=== PATIENT | male | born 1945 | race Caucasian/White ===

== ENCOUNTER → 2018-08-17 09:18 | Outpatient (CLI) | payer MEDICARE, OTHER, SELFPAY ==
[2018-08-17 10:25] LABS: Alanine Aminotransferase 48 IU/L (21-72); Albumin 4.4 g/dL (3.5-5.0); Albumin Globulin Ratio 1.6 (1.0-2.8); Alkaline Phosphatase 56 U/L (38-126); Aspartate Aminotransferase 41 IU/L (17-59); BUN Creatinine Ratio 21.3 (6-22); Bilirubin Total 0.7 mg/dL (0.2-1.3); Blood Urea Nitrogen 17 mg/dL (9-20); Calcium 9.6 mg/dL (8.4-10.2); Carbon Dioxide 25 mmol/L (22-32); Chloride 103 mmol/L (98-107); Estimated Glomerular Filt Rate > 60.0 mL/min (>60); Globulin 2.7 g/dL (1.7-4.1); Glucose 103 mg/dL (80-110); HEMOLYSIS < 15 (0-50); Potassium 4.9 mmol/L (3.4-5.1); Sodium 139 mmol/L (137-145); Total Protein 7.1 g/dL (6.3-8.2)
== END ==
PROVIDERS: Family Provider Physician Assistant; PCP Physician Assistant; Visit Provider Physician Assistant
DX: I10 Essential (primary) hypertension (principal); R97.20 Elevated prostate specific antigen [PSA]
CPT/HCPCS: 36415; 80053; 84153

== ENCOUNTER → 2019-08-20 11:49 | Outpatient (CLI) | payer MEDICARE, OTHER, SELFPAY ==
[2019-08-20 13:10] LABS: Alanine Aminotransferase 98 IU/L (<50); Albumin 4.5 g/dL (3.5-5.0); Albumin Globulin Ratio 1.5 (1.0-2.8); Alkaline Phosphatase 69 U/L (38-126); Aspartate Aminotransferase 95 IU/L (17-59); Bilirubin Total 0.7 mg/dL (0.2-1.3); Blood Urea Nitrogen 16 mg/dL (9-20); Calcium 10.3 mg/dL (8.4-10.2); Carbon Dioxide 23 mmol/L (22-32); Chloride 103 mmol/L (98-107); Estimated Glomerular Filt Rate > 60.0 mL/min (>60); Globulin 3.1 g/dL (1.7-4.1); Glucose 152 mg/dL (80-110); HEMOLYSIS < 15 (0-50); Potassium 4.5 mmol/L (3.4-5.1); Sodium 138 mmol/L (137-145); Total Protein 7.6 g/dL (6.3-8.2)
[2019-08-20 13:14] LABS: Creatinine Urine Random 122.8 mg/dL
[2019-08-20 13:19] LABS: Microalbumi Creatinin Ratio Ur 115.6 ug/mg CR (<30); Microalbumin Urine Random 14.2 mg/dL (0-1.6)
== END ==
PROVIDERS: PCP Physician Assistant; Visit Provider Physician Assistant
DX: I10 Essential (primary) hypertension (principal)
CPT/HCPCS: 36415; 80053; 82043; 82570

== ENCOUNTER → 2019-10-13 10:12 | Outpatient (CLI) | payer MEDICARE, OTHER, SELFPAY ==
[2019-10-13 10:47] LABS: Hemoglobin A1C% w Est Avg Glu 7.5 % (4.0-6.0)
[2019-10-13 10:49] LABS: Alanine Aminotransferase 50 IU/L (<50); Albumin 4.6 g/dL (3.5-5.0); Albumin Globulin Ratio 1.4 (1.0-2.8); Alkaline Phosphatase 66 U/L (38-126); Aspartate Aminotransferase 39 IU/L (17-59); BUN Creatinine Ratio 16.3 (6-22); Bilirubin Total 0.6 mg/dL (0.2-1.3); Blood Urea Nitrogen 13 mg/dL (9-20); Calcium 10.1 mg/dL (8.4-10.2); Carbon Dioxide 26 mmol/L (22-32); Chloride 101 mmol/L (98-107); Cholesterol 182 mg/dL (140-199); Estimated Glomerular Filt Rate > 60.0 mL/min (>60); Globulin 3.3 g/dL (1.7-4.1); Glucose 141 mg/dL (80-110); HDL Cholesterol 30 mg/dL (40-60); HEMOLYSIS < 15 (0-50); LDL Cholesterol Calculated 111 mg/dL (<100); Potassium 5.2 mmol/L (3.4-5.1); Sodium 138 mmol/L (137-145); Total Protein 7.9 g/dL (6.3-8.2); Triglycerides 207 mg/dL (35-150)
[2019-10-13 11:19] LABS: Thyroid Stimulating Hormone 1.95 uIU/mL (0.47-4.68)
== END ==
PROVIDERS: PCP Physician Assistant; Referring Provider Physician Assistant; Visit Provider Physician Assistant
DX: I10 Essential (primary) hypertension (principal); R63.5 Abnormal weight gain; R73.01 Impaired fasting glucose; R74.8 Abnormal levels of other serum enzymes
CPT/HCPCS: 36415; 80053; 80061; 83036; 84443

== ENCOUNTER → 2020-11-05 10:16 | Outpatient (CLI) | payer MEDICARE, OTHER, SELFPAY ==
[2020-11-05 11:02] LABS: Add Manual Diff / Slide Review NO; Basophils Absolute Auto 0 /uL (0-100); Basophils Percent Auto 0.7 % (0-2); Eosinophils Absolute Auto 100 /uL (0-450); Eosinophils Percent Auto 2.4 % (2-4); Hematocrit 44.1 % (41-53); Hemoglobin 14.9 g/dL (13.5-17.5); Lymphocytes Absolute Auto 1100 /uL (1100-4500); Lymphocytes Percent Auto 20.7 % (25-40); Mean Corpuscular HGB Conc 33.7 % (30-36); Mean Corpuscular Hemoglobin 33.7 PG (26-34); Mean Corpuscular Volume 99.8 fL (80-100); Monocytes Absolute Auto 700 /uL (0-900); Monocytes Percent Auto 13.6 % (3-14); Neutrophils Absolute Auto 3400 /uL (1500-7000); Neutrophils Percent Auto 62.6 % (50-75); Platelet Count 201 X10^3/uL (150-400); Red Blood Cell Count 4.42 X10^6/uL (4.5-5.9); Red Cell Distribution Width 13.5 % (11.6-14.8); White Blood Cell Count 5.5 X10^3/uL (4.5-11.0)
[2020-11-05 11:12] LABS: Hemoglobin A1C% w Est Avg Glu 5.4 % (4.0-6.0)
[2020-11-05 11:47] LABS: Alanine Aminotransferase 21 IU/L (<50); Albumin 4.5 g/dL (3.5-5.0); Albumin Globulin Ratio 1.4 (1.0-2.8); Alkaline Phosphatase 63 U/L (38-126); Aspartate Aminotransferase 34 IU/L (17-59); BUN Creatinine Ratio 29.2 (6-22); Bilirubin Total 0.5 mg/dL (0.2-1.3); Blood Urea Nitrogen 21 mg/dL (9-20); Calcium 9.7 mg/dL (8.4-10.2); Carbon Dioxide 24 mmol/L (22-32); Chloride 106 mmol/L (98-107); Cholesterol 182 mg/dL (140-199); Estimated Glomerular Filt Rate > 60.0 mL/min (>60); Globulin 3.2 g/dL (1.7-4.1); Glucose 98 mg/dL (80-110); HDL Cholesterol 53 mg/dL (40-60); HEMOLYSIS < 15 (0-50); LDL Cholesterol Calculated 95 mg/dL (<100); Potassium 4.5 mmol/L (3.4-5.1); Sodium 139 mmol/L (137-145); Total Protein 7.7 g/dL (6.3-8.2); Triglycerides 172 mg/dL (35-150)
== END ==
PROVIDERS: PCP Registered Nurse Diabetes Educator; Referring Provider Registered Nurse Diabetes Educator; Visit Provider Registered Nurse Diabetes Educator
DX: E11.9 Type 2 diabetes mellitus without complications (principal); I10 Essential (primary) hypertension; E78.5 Hyperlipidemia, unspecified
CPT/HCPCS: 36415; 80053; 80061; 83036; 85025

== ENCOUNTER → 2021-12-22 09:03 | Outpatient (CLI) | payer MEDICARE, OTHER, SELFPAY ==
[2021-12-22 09:54] LABS: Hematocrit 43.4 % (41-53); Hemoglobin 14.9 g/dL (13.5-17.5); Mean Corpuscular HGB Conc 34.2 % (30-36); Mean Corpuscular Hemoglobin 34.1 PG (26-34); Mean Corpuscular Volume 99.4 fL (80-100); Platelet Count 227 X10^3/uL (150-400); Red Blood Cell Count 4.36 X10^6/uL (4.5-5.9); Red Cell Distribution Width 12.5 % (11.6-14.8); White Blood Cell Count 6.1 X10^3/uL (4.5-11.0)
[2021-12-22 10:09] LABS: Hemoglobin A1C% w Est Avg Glu 5.5 % (4.0-6.0)
[2021-12-22 10:13] LABS: Alanine Aminotransferase 19 IU/L (<50); Albumin 4.5 g/dL (3.5-5.0); Albumin Globulin Ratio 1.6 (1.0-2.8); Alkaline Phosphatase 63 U/L (38-126); Aspartate Aminotransferase 25 IU/L (17-59); BUN Creatinine Ratio 31.3 (6-22); Bilirubin Total 0.8 mg/dL (0.2-1.3); Blood Urea Nitrogen 21 mg/dL (9-20); Calcium 9.2 mg/dL (8.4-10.2); Carbon Dioxide 22 mmol/L (22-32); Chloride 106 mmol/L (98-107); Cholesterol 180 mg/dL (140-199); Estimated Glomerular Filt Rate > 60 mL/min (>60); Globulin 2.8 g/dL (1.7-4.1); Glucose 98 mg/dL (80-110); HDL Cholesterol 45 mg/dL (40-60); HEMOLYSIS < 15 (0-50); LDL Cholesterol Calculated 102 mg/dL (<100); Potassium 4.4 mmol/L (3.4-5.1); Sodium 138 mmol/L (137-145); Total Protein 7.3 g/dL (6.3-8.2); Triglycerides 163 mg/dL (35-150)
[2021-12-22 10:20] LABS: Creatinine Urine Random 91.4 mg/dL; Microalbumi Creatinin Ratio Ur 98.4 ug/mg CR (<30)
[2021-12-22 10:36] LABS: TSH w/ Reflex to FT4 1.83 uIU/mL (0.47-4.68)
== END ==
PROVIDERS: PCP Registered Nurse Diabetes Educator; Referring Provider Registered Nurse Diabetes Educator; Visit Provider Registered Nurse Diabetes Educator
DX: E78.5 Hyperlipidemia, unspecified (principal); E11.9 Type 2 diabetes mellitus without complications; I10 Essential (primary) hypertension
CPT/HCPCS: 36415; 80053; 80061; 82043; 82570; 83036; 84443; 85027

== ENCOUNTER → 2022-02-22 14:21 | Outpatient (CLI) | payer MEDICARE, OTHER, SELFPAY ==
[2022-02-22 15:36] LABS: Hemoglobin A1C% w Est Avg Glu 5.7 % (4.0-6.0)
[2022-02-22 16:00] LABS: Carbon Dioxide 23 mmol/L (22-32); Estimated Glomerular Filt Rate > 60 mL/min (>60); Glucose 104 mg/dL (80-110)
[2022-02-22 16:02] LABS: Creatinine Urine Random 83.4 mg/dL
[2022-02-22 16:05] LABS: Microalbumi Creatinin Ratio Ur 27.5 ug/mg CR (<30); Microalbumin Urine Random 2.3 mg/dL (0-1.6)
[2022-02-22 16:07] LABS: Chloride 106 mmol/L (98-107); Sodium 140 mmol/L (137-145)
[2022-02-22 16:23] LABS: HEMOLYSIS 116 (0-50)
== END ==
PROVIDERS: PCP Registered Nurse Diabetes Educator; Referring Provider Registered Nurse Diabetes Educator; Visit Provider Registered Nurse Diabetes Educator
DX: I10 Essential (primary) hypertension (principal); E11.9 Type 2 diabetes mellitus without complications; R80.9 Proteinuria, unspecified
CPT/HCPCS: 36415; 80048; 82043; 82570; 83036

== ENCOUNTER → 2022-04-18 10:21 | Outpatient (CLI) | payer MEDICARE, OTHER, SELFPAY ==
[2022-04-18 12:53] LABS: BUN Creatinine Ratio 36.9 (6-22); Blood Urea Nitrogen 31 mg/dL (9-20); Calcium 9.5 mg/dL (8.4-10.2); Carbon Dioxide 25 mmol/L (22-32); Chloride 103 mmol/L (98-107); Estimated Glomerular Filt Rate > 60 mL/min (>60); Glucose 96 mg/dL (80-110); HEMOLYSIS < 15 (0-50); Potassium 4.2 mmol/L (3.4-5.1); Sodium 141 mmol/L (137-145)
== END ==
PROVIDERS: PCP Registered Nurse Diabetes Educator; Referring Provider Registered Nurse Diabetes Educator; Visit Provider Registered Nurse Diabetes Educator
DX: E11.9 Type 2 diabetes mellitus without complications (principal); I10 Essential (primary) hypertension
CPT/HCPCS: 36415; 80048

== ENCOUNTER → 2022-06-26 14:13 | Outpatient (CLI) | payer MEDICARE, SELFPAY ==
[2022-06-27 18:01] LABS: Hemoglobin A1C% w Est Avg Glu 5.5 % (4.0-6.0)
== END ==
PROVIDERS: PCP Registered Nurse Diabetes Educator; Referring Provider Registered Nurse Diabetes Educator; Visit Provider Registered Nurse Diabetes Educator
DX: E11.9 Type 2 diabetes mellitus without complications (principal); I10 Essential (primary) hypertension
CPT/HCPCS: 36415; 83036

== ENCOUNTER → 2022-11-24 14:28 | Outpatient (CLI) | payer MEDICARE, OTHER, SELFPAY ==
[2022-11-24 18:55] LABS: Hematocrit 37.9 % (41-53); Mean Corpuscular HGB Conc 34.4 % (30-36); Mean Corpuscular Hemoglobin 34.6 PG (26-34); Mean Corpuscular Volume 100.7 fL (80-100); Platelet Count 219 X10^3/uL (150-400); Red Blood Cell Count 3.76 X10^6/uL (4.5-5.9); Red Cell Distribution Width 12.6 % (11.6-14.8); White Blood Cell Count 7.1 X10^3/uL (4.5-11.0)
[2022-11-24 19:28] LABS: Alanine Aminotransferase 21 IU/L (<50); Albumin 4.4 g/dL (3.5-5.0); Albumin Globulin Ratio 1.7 (1.0-2.8); Alkaline Phosphatase 69 U/L (38-126); Aspartate Aminotransferase 25 IU/L (17-59); Bilirubin Total 0.4 mg/dL (0.2-1.3); Blood Urea Nitrogen 30 mg/dL (9-20); Carbon Dioxide 23 mmol/L (22-32); Chloride 102 mmol/L (98-107); Cholesterol 138 mg/dL (140-199); Estimated Glomerular Filt Rate > 60 mL/min (>60); Globulin 2.6 g/dL (1.7-4.1); Glucose 105 mg/dL (80-110); HDL Cholesterol 55 mg/dL (40-60); HEMOLYSIS < 15 (0-50); LDL Cholesterol Calculated 41 mg/dL (<100); Potassium 4.2 mmol/L (3.4-5.1); Sodium 136 mmol/L (137-145); Triglycerides 212 mg/dL (35-150)
[2022-11-24 20:37] LABS: Creatinine Urine Random 81.8 mg/dL
[2022-11-24 20:40] LABS: Microalbumi Creatinin Ratio Ur 40.3 ug/mg CR (<30); Microalbumin Urine Random 3.3 mg/dL (0-1.6)
[2022-11-27 03:29] LABS: x Labcorp Estim. Avg Glu (eAG) 114 mg/dL (.); x Labcorp Hemoglobin A1c 5.6 % (4.8-5.6)
== END ==
PROVIDERS: PCP Registered Nurse Diabetes Educator; Referring Provider Registered Nurse Diabetes Educator; Visit Provider Registered Nurse Diabetes Educator
DX: I10 Essential (primary) hypertension (principal); E11.9 Type 2 diabetes mellitus without complications; E78.5 Hyperlipidemia, unspecified
CPT/HCPCS: 36415; 80053; 80061; 82043; 82570; 83036; 85027

== ENCOUNTER → 2022-12-13 12:58 | Outpatient (CLI) | payer MEDICARE, OTHER, SELFPAY ==
[2022-12-13 15:17] LABS: Folate > 20.0 ng/mL (2.76-20.0); Vitamin B12 Reflex MMA if <400 336 pg/mL (239-931)
[2022-12-14 06:04] LABS: x Labcorp Estim. Avg Glu (eAG) 117 mg/dL (.); x Labcorp Hemoglobin A1c 5.7 % (4.8-5.6)
[2022-12-22 14:40] LABS: Methylmalonic Acid,Serum 275 nmol/L (0-378)
== END ==
PROVIDERS: PCP Registered Nurse Diabetes Educator; Referring Provider Registered Nurse Diabetes Educator; Visit Provider Registered Nurse Diabetes Educator
DX: D53.9 Nutritional anemia, unspecified (principal); E11.9 Type 2 diabetes mellitus without complications
CPT/HCPCS: 82607; 82746; 83036; 83921; 85045

== ENCOUNTER → 2023-12-05 09:58 | Outpatient (CLI) | payer MEDICARE, OTHER, SELFPAY ==
[2023-12-05 10:50] LABS: Add Manual Diff / Slide Review NO; Basophils Absolute Auto 0 /uL (0-100); Basophils Percent Auto 0.8 % (0-2); Eosinophils Absolute Auto 100 /uL (0-450); Eosinophils Percent Auto 2.7 % (2-4); Hematocrit 39.3 % (41-53); Hemoglobin 13.3 g/dL (13.5-17.5); Lymphocytes Absolute Auto 1200 /uL (1100-4500); Lymphocytes Percent Auto 22.8 % (25-40); Mean Corpuscular HGB Conc 33.7 % (30-36); Mean Corpuscular Hemoglobin 33.7 PG (26-34); Monocytes Absolute Auto 600 /uL (0-900); Monocytes Percent Auto 11.2 % (3-14); Neutrophils Absolute Auto 3200 /uL (1500-7000); Neutrophils Percent Auto 62.5 % (50-75); Platelet Count 204 X10^3/uL (150-400); Red Blood Cell Count 3.93 X10^6/uL (4.5-5.9); Red Cell Distribution Width 13.4 % (11.6-14.8); White Blood Cell Count 5.2 X10^3/uL (4.5-11.0)
[2023-12-05 12:06] LABS: Vitamin B12 Reflex MMA if <400 773 pg/mL (239-931)
== END ==
PROVIDERS: PCP Registered Nurse Diabetes Educator; Referring Provider Registered Nurse Diabetes Educator; Visit Provider Registered Nurse Diabetes Educator
DX: D53.9 Nutritional anemia, unspecified (principal); E53.8 Deficiency of other specified B group vitamins
CPT/HCPCS: 36415; 82607; 83090; 85025

== ENCOUNTER → 2023-12-21 08:39 | Outpatient (CLI) | payer MEDICARE, OTHER, SELFPAY ==
[2023-12-21 09:41] LABS: Hemoglobin A1C% w Est Avg Glu 5.6 % (4.0-6.0)
[2023-12-21 09:48] LABS: Alanine Aminotransferase 21 IU/L (<50); Albumin 4.6 g/dL (3.5-5.0); Albumin Globulin Ratio 1.8 (1.0-2.8); Alkaline Phosphatase 62 U/L (38-126); Aspartate Aminotransferase 25 IU/L (17-59); BUN Creatinine Ratio 36.6 (6-22); Bilirubin Total 0.6 mg/dL (0.2-1.3); Blood Urea Nitrogen 34 mg/dL (9-20); Calcium 9.8 mg/dL (8.4-10.2); Carbon Dioxide 25 mmol/L (22-32); Chloride 105 mmol/L (98-107); Cholesterol 159 mg/dL (140-199); Estimated Glomerular Filt Rate > 60 mL/min (>60); Globulin 2.5 g/dL (1.7-4.1); Glucose 97 mg/dL (80-110); HDL Cholesterol 84 mg/dL (40-60); HEMOLYSIS < 15 (0-50); LDL Cholesterol Calculated 63 mg/dL (<100); Potassium 4.3 mmol/L (3.4-5.1); Sodium 138 mmol/L (137-145); Total Protein 7.1 g/dL (6.3-8.2); Triglycerides 62 mg/dL (35-150)
[2023-12-21 10:01] LABS: Microalbumin Urine Random 7.5 mg/dL (0-1.6)
[2023-12-21 10:15] LABS: TSH w/ Reflex to FT4 1.43 uIU/mL (0.47-4.68)
== END ==
PROVIDERS: PCP Registered Nurse Diabetes Educator; Referring Provider Registered Nurse Diabetes Educator; Visit Provider Registered Nurse Diabetes Educator
DX: E11.9 Type 2 diabetes mellitus without complications (principal); E78.5 Hyperlipidemia, unspecified; I10 Essential (primary) hypertension
CPT/HCPCS: 36415; 80053; 80061; 82043; 82570; 83036; 84443

== ENCOUNTER → 2024-06-25 08:28 | Outpatient (CLI) | payer MEDICARE, OTHER, SELFPAY ==
[2024-06-25 09:11] LABS: Hematocrit 39.9 % (41-53); Hemoglobin 13.5 g/dL (13.5-17.5); Mean Corpuscular HGB Conc 33.7 % (30-36); Mean Corpuscular Hemoglobin 33.6 PG (26-34); Mean Corpuscular Volume 99.7 fL (80-100); Platelet Count 270 X10^3/uL (150-400); Red Blood Cell Count 4.01 X10^6/uL (4.5-5.9); White Blood Cell Count 5.8 X10^3/uL (4.5-11.0)
[2024-06-25 09:19] LABS: Hemoglobin A1C% w Est Avg Glu 5.7 % (4.0-6.0)
[2024-06-25 09:38] LABS: HEMOLYSIS < 15 (0-50); Iron 94 ug/dL (49-181)
[2024-06-25 09:41] LABS: Creatinine Urine Random 72.18 mg/dL
[2024-06-25 09:46] LABS: Microalbumin Urine Random 9.3 mg/dL (0-1.6)
[2024-06-25 09:53] LABS: Percent Iron Saturation 31 % (20-50); Total Iron Binding Capacity 300 ug/dL (261-462); Transferrin 283 mg/dL (206-381)
[2024-06-25 10:17] LABS: Ferritin 53 ng/mL (18-464)
[2024-06-25 10:28] LABS: Vitamin B12 > 1000 pg/mL (239-931)
== END ==
PROVIDERS: PCP Registered Nurse Diabetes Educator; Referring Provider Registered Nurse Diabetes Educator; Visit Provider Registered Nurse Diabetes Educator
DX: D53.9 Nutritional anemia, unspecified (principal); E11.9 Type 2 diabetes mellitus without complications; R80.9 Proteinuria, unspecified
CPT/HCPCS: 36415; 82043; 82570; 82607; 82728; 83036; 83540; 83550; 85027

== ENCOUNTER → 2024-10-16 11:03 | Outpatient (CLI) | payer MEDICARE, OTHER, SELFPAY ==
[2024-10-16 12:22] LABS: Hemoglobin 13.7 g/dL (13.5-17.5); Mean Corpuscular HGB Conc 34.4 % (30-36); Mean Corpuscular Hemoglobin 34.2 PG (26-34); Mean Corpuscular Volume 99.6 fL (80-100); Platelet Count 229 X10^3/uL (150-400); Red Blood Cell Count 4.02 X10^6/uL (4.5-5.9); Red Cell Distribution Width 12.9 % (11.6-14.8); White Blood Cell Count 6.6 X10^3/uL (4.5-11.0)
[2024-10-16 12:42] LABS: Alanine Aminotransferase 25 IU/L (<50); Albumin 4.8 g/dL (3.5-5.0); Albumin Globulin Ratio 1.9 (1.0-2.8); Alkaline Phosphatase 73 U/L (38-126); Aspartate Aminotransferase 31 IU/L (17-59); BUN Creatinine Ratio 34.7 (6-22); Bilirubin Total 0.6 mg/dL (0.2-1.3); Blood Urea Nitrogen 34 mg/dL (9-20); Calcium 10.4 mg/dL (8.4-10.2); Carbon Dioxide 22 mmol/L (22-32); Chloride 103 mmol/L (98-107); Cholesterol 162 mg/dL (140-199); Estimated Glomerular Filt Rate > 60 mL/min (>60); Globulin 2.5 g/dL (1.7-4.1); Glucose 97 mg/dL (80-110); HDL Cholesterol 67 mg/dL (40-60); HEMOLYSIS < 15 (0-50); Hemoglobin A1C% w Est Avg Glu 5.3 % (4.0-6.0); LDL Cholesterol Calculated 66 mg/dL (<100); Potassium 4.5 mmol/L (3.4-5.1); Sodium 138 mmol/L (137-145); Total Protein 7.3 g/dL (6.3-8.2); Triglycerides 144 mg/dL (35-150)
[2024-10-16 13:22] LABS: Vitamin B12 987 pg/mL (239-931)
[2024-10-16 14:38] LABS: Microalbumin Urine Random 15.7 mg/dL (0-1.6)
== END ==
PROVIDERS: PCP Registered Nurse Diabetes Educator; Referring Provider Registered Nurse Diabetes Educator; Visit Provider Registered Nurse Diabetes Educator
DX: D53.9 Nutritional anemia, unspecified (principal); R79.89 Other specified abnormal findings of blood chemistry; E11.9 Type 2 diabetes mellitus without complications; I10 Essential (primary) hypertension
CPT/HCPCS: 36415; 80053; 80061; 82043; 82570; 82607; 83036; 84443; 85027

== ENCOUNTER → 2024-11-11 15:00 | Outpatient (CLI) | payer MEDICARE, OTHER, SELFPAY ==
--- NOTE | 2024-11-11 15:02 | DI.ECHO.S_ITS ---
[facility] : : [address] : : [place] : : [id number] : : Phone: [phone] Echocardiogram Report + + :Name: COLLINS CRUZ Study Date: 11/11/2024 Height: 70 in : :[facility] ReadingLocation: Weight: 200 lb : : Gender: Male BSA: 2.1 m2 : :: 1945 Age: 79 yrs BP: 172/86 mmHg: :Reason For Study: HYPERTENSION : :Ordering Physician: RUSS, : :LAUREN Performed By: Jose Kent : :Referring: LAUREN SOLANO : + + Interpretation Summary 1) Mildly increased left ventricular thickness (concentric) with normal, size, normal wall motion, and normal systolic function (EF 55-60%). 2) Mildly enlarged right ventricle with normal function. 3) No significant valvular abnormalities. 4) No prior Echo available for comparison. Procedure: A two-dimensional transthoracic echocardiogram with color flow and Doppler was performed. The study quality was technically good. There is no prior echocardiogram noted for this patient. The patient was in normal sinus rhythm during the exam. Left Ventricle: The left ventricle is normal in size. Left ventricular wall thickness is mildly increased. There is no ventricular septal defect visualized. The ejection fraction is estimated to be 55-60%. There are no focal wall motion abnormalities. Diastolic parameters suggest a relaxation abnormality of the left ventricle, consistent with probable normal filling pressures. Right Ventricle: The right ventricle is mildly dilated. The right ventricular systolic function is normal. Atria: The left atrial size is normal. Right atrial size is normal. There is no Doppler evidence for an interatrial shunt. Mitral Valve: The mitral valve leaflets appear normal. There is no evidence of stenosis, fluttering, or prolapse. There is trace mitral regurgitation. Aortic Valve: The aortic valve is trileaflet. The aortic valve is mildly calcified. The aortic valve opens well. There is no aortic valve stenosis. There is trace aortic regurgitation. Tricuspid Valve: The tricuspid valve leaflets are thin and pliable. There is trace tricuspid regurgitation. Pulmonic Valve: The pulmonic valve is not well visualized. There is no pulmonic valvular regurgitation. Great Vessels: The aortic root is normal size. The ascending aorta is at the upper limits of normal in size. The pulmonary artery is normal size. The inferior vena cava was not visualized. Pericardium/ Pleura There is no pericardial effusion. MMode/2D Measurements & Calculations LVIDd: 4.4 cm LVOT diam: 2.2 cm LVIDs: 3.3 cm Ao root diam: 3.6 cm FS: 26.2 % asc Aorta Diam: 3.8 cm EPSS: 0.53 cm IVSd: 1.2 cm LVPWd: 1.1 cm LV canas. diameter/BSA (cm/m^2): 2.1 LV sys. diameter/BSA (cm/m^2): 1.6 LA A2 area: 15.5 cm2 RA long axis: 6.0 cm LA A4 area: 19.1 cm2 RA area: 14.4 cm2 LA length (vol): 6.0 cm RA vol: 29.2 ml LA vol: 42.1 ml RA : 14.0 ml/m2 LA vol index: 20.2 ml/m2 RVD1 (basal): 4.1 cm RVD2 (mid): 3.5 cm TAPSE: 2.5 cm Doppler Measurements & Calculations Ao V2 max: 136.9 cm/sec LVOT Max Venkat: 103.2 cm/sec Ao V2 mean: 104.3 cm/sec LV V1 max P.3 mmHg Ao max P.5 mmHg LV V1 VTI: 23.4 cm Ao mean P.6 mmHg AAMIR(I,D): 2.9 cm2 Ao V2 VTI: 29.8 cm AAMIR(V,D): 2.8 cm2 sev ratio: 0.79 AAMIR indexed to BSA (cm^2/m^2): 1.4 MV E max venkat: 62.1 cm/sec TR max venkat: 259.8 cm/sec MV A max venkat: 100.4 cm/sec TR max P.0 mmHg MV E/A: 0.62 PA V2 max: 123.1 cm/sec Med Peak E' Venkat: 6.8 cm/sec PA V2 mean: 78.4 cm/sec E/E' med: 9.1 PA mean P.8 mmHg Lat Peak E' Venkat: 7.9 cm/sec PA pr(Accel): 51.6 mmHg E/E' lat: 7.8 E/e' average: 8.5 MV dec time: 0.19 sec ESTEFANI): 85.6 ml Reading Physician:02:16 PM
== END ==
PROVIDERS: PCP Registered Nurse Diabetes Educator; Referring Provider Registered Nurse Diabetes Educator; Visit Provider Family Medicine
DX: I10 Essential (primary) hypertension (principal); R80.9 Proteinuria, unspecified
CPT/HCPCS: 93306

== ENCOUNTER → 2025-01-08 13:43 | Outpatient (CLI) | payer MEDICARE, OTHER, SELFPAY ==
[2025-01-08 14:30] LABS: Add Manual Diff / Slide Review NO; Basophils Absolute Auto 0 /uL (0-100); Basophils Percent Auto 0.6 % (0-2); Eosinophils Absolute Auto 200 /uL (0-450); Eosinophils Percent Auto 2.3 % (2-4); Hematocrit 38.4 % (41-53); Hemoglobin 12.8 g/dL (13.5-17.5); Lymphocytes Absolute Auto 1000 /uL (1100-4500); Lymphocytes Percent Auto 13.2 % (25-40); Mean Corpuscular HGB Conc 33.4 % (30-36); Mean Corpuscular Hemoglobin 33.7 PG (26-34); Mean Corpuscular Volume 100.9 fL (80-100); Monocytes Absolute Auto 1400 /uL (0-900); Monocytes Percent Auto 17.6 % (3-14); Neutrophils Absolute Auto 5200 /uL (1500-7000); Neutrophils Percent Auto 66.3 % (50-75); Platelet Count 215 X10^3/uL (150-400); Red Cell Distribution Width 12.9 % (11.6-14.8); White Blood Cell Count 7.9 X10^3/uL (4.5-11.0)
[2025-01-08 15:20] LABS: Alanine Aminotransferase 30 IU/L (<50); Albumin 4.4 g/dL (3.5-5.0); Albumin Globulin Ratio 1.7 (1.0-2.8); Alkaline Phosphatase 81 U/L (38-126); Aspartate Aminotransferase 33 IU/L (17-59); BUN Creatinine Ratio 31.3 (6-22); Bilirubin Total 0.6 mg/dL (0.2-1.3); Blood Urea Nitrogen 31 mg/dL (9-20); Calcium 9.8 mg/dL (8.4-10.2); Carbon Dioxide 23 mmol/L (22-32); Chloride 102 mmol/L (98-107); Estimated Glomerular Filt Rate > 60 mL/min (>60); Globulin 2.6 g/dL (1.7-4.1); Glucose 129 mg/dL (70-99); HEMOLYSIS < 15 (0-50); Potassium 4.2 mmol/L (3.4-5.1); Sodium 138 mmol/L (137-145)
== END ==
PROVIDERS: PCP Registered Nurse Diabetes Educator; Referring Provider Family Medicine; Visit Provider Family Medicine
DX: I10 Essential (primary) hypertension (principal); D53.9 Nutritional anemia, unspecified
CPT/HCPCS: 36415; 80053; 85025

== ENCOUNTER → 2025-04-13 09:46 | Outpatient (CLI) | payer MEDICARE, OTHER, SELFPAY ==
[2025-04-13 10:16] LABS: Hematocrit 37.1 % (41-53); Hemoglobin 12.5 g/dL (13.5-17.5); Mean Corpuscular HGB Conc 33.8 % (30-36); Mean Corpuscular Hemoglobin 33.5 PG (26-34); Mean Corpuscular Volume 99.0 fL (80-100); Platelet Count 220 X10^3/uL (150-400)
[2025-04-13 11:29] LABS: Hemoglobin A1C% w Est Avg Glu 5.7 % (4.0-6.0)
[2025-04-13 12:49] LABS: Microalbumi Creatinin Ratio Ur 266.0 ug/mg CR (<30)
== END ==
PROVIDERS: PCP Registered Nurse Diabetes Educator; Referring Provider Registered Nurse Diabetes Educator; Visit Provider Registered Nurse Diabetes Educator
DX: E11.9 Type 2 diabetes mellitus without complications (principal); I10 Essential (primary) hypertension; D53.9 Nutritional anemia, unspecified
CPT/HCPCS: 36415; 82043; 82570; 83036; 85027

== ENCOUNTER → 2025-04-30 11:18 | Outpatient (CLI) | payer MEDICARE, OTHER, SELFPAY ==
[2025-04-30 12:14] LABS: Hemoglobin A1C% w Est Avg Glu 5.7 % (4.0-6.0)
[2025-04-30 12:49] LABS: Albumin 4.6 g/dL (3.5-5.0); Blood Urea Nitrogen 32 mg/dL (9-20); Calcium 9.7 mg/dL (8.4-10.2); Carbon Dioxide 26 mmol/L (22-32); Chloride 102 mmol/L (98-107); Estimated Glomerular Filt Rate > 60 mL/min (>60); Glucose 91 mg/dL (70-99); HEMOLYSIS < 15 (0-50); Potassium 4.2 mmol/L (3.4-5.1); Sodium 139 mmol/L (137-145)
[2025-04-30 12:56] LABS: Prealbumin 35.2 mg/dL (17.6-36.0)
[2025-04-30 16:45] LABS: Vitamin D 25 Hydroxy (D3) 41.1 ng/mL (30.0-100.0)
== END ==
PROVIDERS: PCP Registered Nurse Diabetes Educator; Referring Provider Orthopaedic Surgery Adult Reconstructive Orthopaedic Surgery; Visit Provider Orthopaedic Surgery Adult Reconstructive Orthopaedic Surgery
DX: R73.09 Other abnormal glucose (principal); E55.9 Vitamin D deficiency, unspecified; M16.11 Unilateral primary osteoarthritis, right hip; Z68.30 Body mass index [BMI] 30.0-30.9, adult
CPT/HCPCS: 36415; 80048; 82040; 82306; 83036; 84134; 99214

== ENCOUNTER → 2025-05-21 11:24 | Outpatient (CLI) | payer MEDICARE, OTHER, SELFPAY ==
[2025-05-21 11:41] LABS: Add Manual Diff / Slide Review NO; Hematocrit 37.0 % (41-53); Hemoglobin 12.7 g/dL (13.5-17.5); Lymphocytes Absolute Auto 1300 /uL (1100-4500); Mean Corpuscular HGB Conc 34.3 % (30-36); Mean Corpuscular Hemoglobin 33.7 PG (26-34); Mean Corpuscular Volume 98.3 fL (80-100); Platelet Count 233 X10^3/uL (150-400)
--- NOTE | 2025-05-21 11:51 | EKG_ITS ---
[place] [address] [place] [id number] Test Date: 2025-05-21 Pat Name: Marcos Khan Department: [facility] Room: Gender: Male Certified Phlebotomy Technician: THOR : 1945 Requested By: Order Number: [id number] Reading MD: Les Arteaga MD Measurements Intervals Echo Rate: 86 P: 10 WY: 204 QRS: -2 QRSD: 86 T: -8 QT: 370 QTc: 442 Interpretive Statements Normal sinus rhythm Inferior infarct , age undetermined Electronically Signed On 05-31-2025 9:00:24 PST by Les Arteaga MD
== END ==
PROVIDERS: PCP Registered Nurse Diabetes Educator; Referring Provider Registered Nurse Diabetes Educator; Visit Provider Registered Nurse Diabetes Educator
DX: Z01.818 Encounter for other preprocedural examination (principal); D53.9 Nutritional anemia, unspecified
CPT/HCPCS: 36415; 85025; 93005; 93010

== ENCOUNTER 2025-07-13 06:44 | Day surgery (SDC) | payer MEDICARE, OTHER, SELFPAY ==
[2025-07-08 12:07] VITALS: BMI 30.7
[2025-07-13] VITALS (9 sets, daily range): BP systolic 117–157; BP diastolic 55–81; PULSE 70–93; RESP 15–72; TEMP 36.6–36.9; O2SAT 90–95
--- NOTE | 2025-07-13 | DI.RAD.S_ITS ---
PROCEDURE: XR HIP W PEL IF DONE RT 2V INDICATIONS: TOTAL HIP RIGHT TECHNIQUE: Fluoroscopic guidance utilized for a right total hip arthroplasty COMPARISON: None. FINDINGS: Fluoroscopic images submitted for a right total hip arthroplasty. Please see operative note for further discussion. IMPRESSION: Fluoroscopic guidance. Dictated by: Davion Niño M.D. on 07/13/2025 at 12:30 Approved by: Davion Niño M.D. on 07/13/2025 at 12:31
--- NOTE | 2025-07-13 07:30 | DI.RAD.S_ITS ---
PROCEDURE: XR HIP W PEL IF DONE RT 2V INDICATIONS: implant placement TECHNIQUE: AP pelvis and lateral view of the hip acquired. COMPARISON: [facility], CR, XR HIP W PEL RT 2V, 07/13/2025, 10:29. FINDINGS: Bones: Patient is status post right hip arthroplasty, with hardware components in expected positions. The hip joint appears congruent. The visualized bony structures appear intact. Soft tissues: Overlying postoperative changes are noted. No suspicious soft tissue densities. IMPRESSION: Expected post-operative appearance of a hip arthroplasty. Approved by: Allyssa Barboza M.D.,Ph.D. on 07/13/2025 at 12:52
[2025-07-13] MEDS: LACTATED RINGERS 1,000 ML 42 ML IV ×2 (07:32→11:13)
[2025-07-13] MEDS: MELOXICAM 7.5 MG TABLET 15 MG PO (07:36)
[2025-07-13] MEDS: ACETAMINOPHEN 325 MG TABLET 975 MG PO (07:36)
--- NOTE | 2025-07-13 07:36 | PM.PREOP ---
Pre-operative Note Interval Note History & Physical reviewed/Exam performed by Physician: Yes Changes to H&P: No H&P completed within 30 days and has changed as indicated here:: Operative side 5 mm short both radiographically and clinically. Discussed intention of lengthening to match the nonoperative side.
--- NOTE | 2025-07-13 10:10 | SUR.OPER ---
Supine on padded [place] table with bilateral legs secured in padded positioning boots and suspended in positioning spars, operative leg in traction per surgeon. Head on one pillow. Bilateral arms on non-operative side secured on padded armboards <90 degrees abduction. Padded perineal post in place per surgeon.
[2025-07-13] MEDS: KETOROLAC 30 MG/ML VIAL 15 MG INJ (10:19)
--- NOTE | 2025-07-13 11:12 | PM.OP.1 ---
Operative Date/Time/Diagnoses Date of procedure: 07/13/25 Time of procedure: 10:00 Pre-op diagnosis: Right hip osteoarthritis Post-op diagnosis: same Procedure & Clinicians Procedure: Right total hip arthroplasty Same procedure(s) as scheduled: Yes Surgeon: Khari Medina Assisted?: Yes Acid Purification Equipment Operator: Ava Husain Anesthesia Type: General and Local Operative Notes Findings: Severe right hip arthritis Closure Type: primary Applied: implant(s) Estimated Blood Loss (mL): 200 Procedure in detail: 1. Right Uncemented Direct Anterior Ino Total Hip Arthroplasty (08767) 2. Computer-Assisted Musculoskeletal Surgical Navigational Orthopedic Procedure Using Fluoroscopic Image Guidance (0054T) Implants: G7 PPS size 56 cup? Z1 femoral stem size 5 high offset? 40 mm + 3.5 ceramic femoral head? Procedure Summary: This 80-year-old male had a large cam deformity and severe arthritis. Noted that he had some superolateral wear in his acetabulum but was still able to achieve a robust pinch fit with a 56 mm cup so screws were not necessary for acetabular component fixation and I vigorously tested this by pushing on the cup and moving his entire body to ensure that it had a good pinch fit and was stable. I initially trialed with a +0 head and noted that length was appropriate but offset was decreased so I sank the stem down further and upsized to a +3.5 head. This improved his offset as compared to the contralateral side although it was still slightly less than the contralateral side. I had already sunk the stem quite far down the canal and could not have sunk it any farther at that point in time so I had maximized the offset available with this construct. Stability was excellent as it was very hard to reduce the hip with that amount of soft tissue tension and I could not manually dislocate it by maximally externally rotating. Procedure in Detail: This patient was seen preoperatively and evaluated for hip pain which was refractory to numerous nonoperative treatment modalities. Their hip pain correlated with radiographic changes demonstrating significant degeneration in the hip joint. The risks and benefits of continued nonoperative management versus operative management were discussed at length and all of the patient?s questions were answered. Additional educational materials providing further details beyond our discussion in clinic were provided via a publicly available patient education video which included the incidence of medical complications associated with total hip arthroplasty, reasons for revision following total hip arthroplasty, and patient satisfaction rates following total hip arthroplasty. With this understanding of the risks inherent to the procedure, the patient elected to move forward with operative management. Following preoperative optimization, the patient was scheduled for surgery. The patient was met in the preoperative holding area the day of the procedure and all questions were answered. The patient?s nares were swabbed in order to decolonize them from MRSA. Informed consent was signed and the right limb was marked with indelible ink.? The patient was brought back to the operating room where anesthesia was induced. The patient was transferred to the [place] table and all bony prominences were padded. The operative site was prepped and draped in the usual sterile fashion. Prior to incision, tranexamic acid and cefazolin were administered. Operative templating images were displayed demonstrating the anticipated implant sizes and correct operative extremity. A timeout procedure was performed verifying the patient?s identity, medical comorbidities, allergies, relevant medications, anesthesia type and the surgical plan. All present were in agreement. The assistance of a physician esol teacher assistant was required for positioning, room setup, soft tissue retraction and wound closure. Without this assistance, the procedure would have been significantly more challenging and time consuming.?? A direct anterior approach to the hip was utilized. This was performed with a longitudinal incision through a Heuter interval. The incision was planned 2 cm distal and 2 cm lateral to the ASIS extending towards the lateral patella, in line with the muscle body of the TFL. Following incision, the subcutaneous tissue was dissected while taking care to avoid injury to the lateral femoral cutaneous nerve. The fascia overlying the TFL was identified by dissecting off the overlying fat and identifying perforating vessels to the TFL. The TFL fascia was incised and dissected away from the medial border of the TFL. A retractor was placed over the superior femoral neck between the abductors and the hip capsule and used to reflect the TFL laterally. A [place] self-retainer was then placed in the distal aspect of the wound between the TFL and the rectus femoris. This was tensioned to open up the direct anterior interval and the lateral circumflex vessels were identified and coagulated using electrocautery. The floor of the TFL fascia was incised, exposing the pericapsular fat overlying the hip capsule. A second cobra retractor was placed on the inferior femoral neck. A retractor was placed on the anterior wall of the acetabulum and used to tension the reflected head of rectus femoris, which was then released in order to limit soft tissue tension. A capsulotomy was made in the midline of the anterior hip capsule in line with the femoral neck ending at the vastus tubercle. The anterior retractor was removed as soon as the capsulotomy was completed in order to limit the amount of time that a soft tissue retractor remained on the anterior wall and limit tension on the femoral nerve. Tag stitches were placed in the superior and inferior leaflets of the hip capsule. An [place] soft tissue retractor was introduced over the tag stitches and tensioned in the interval between the rectus femoris and the TFL in order to retract and protect those muscles. The cobra retractors were replaced intracapsularly, with one over the superior neck in the pocket created by the base of the greater trochanter and the other on the femoral head. The capsulotomy was extended laterally to the base of the greater trochanter and medially to the lesser trochanter. This required externally rotating the hip. Once the lesser trochanter had been identified, a neck cut was planned according to measurements from preoperative templating. A ruler was cut at the length measured between the superior aspect of the lesser trochanter and the collar of the prosthesis. This line was extended towards the inferior aspect of the lateral cobra retractor to plan a cut which would leave minimal residual femoral neck laterally. The neck was cut at 60 degrees of external rotation along that line. A second cut was performed to remove a large napkin ring and facilitate head extraction. The napkin ring cut and femoral head were removed.?? A broad anterior wall retractor was placed between the labrum and the anterior capsule so that the anterior capsule would prevent capturing and pinching the femoral nerve anteriorly. An additional retractor was placed on the posterior wall. External rotation and traction were applied through the [place] table so that the cut surface of the femoral neck would not restrict access to the acetabulum. The labrum was excised sharply and the pulvinar was excised with electrocautery to limit bleeding from branches of the obturator artery. Acetabular reamers were selected based on preoperative templating and measurements of the excised femoral head. These were introduced into the acetabulum. Fluoroscopy was utilized to replicate a standing AP pelvis radiograph by centering over the pelvis, rotating until there was appropriate symmetry between the obturator foramen, and introducing caudal tilt to match the position of the pubic symphysis relative to the sacrococcygeal junction according to the patient?s anatomy. Once satisfied with the reaming depth corresponding to the preoperative template and the pinch fit between the columns, an appropriate sized acetabular cup was selected which would provide 1 mm of press-fit. This cup was introduced and manipulated until appropriate abduction and anteversion angles were obtained with careful attention to appropriate abduction and anteversion angles as evaluated by the position of the cup relative to the anterior and posterior dooley of the acetabulum and the AP fluoroscopy which recreated the patient?s standing radiograph. The cup was impacted into place. Peripheral osteophytes were removed. The acetabular liner was then placed with care to ensure locking of the locking mechanism. Attention was then turned to the femur. All retractors were removed, traction was released, a retractor was placed in the interval between the hip capsule and the gluteus minimus. The lateral capsule was released using electrocautery. Traction was released and a [place] hook was placed posteriorly around the proximal femur at the level of the vastus ridge. The table height was lowered in order to restrict the tension on the anterior structures during hip hyperextension to limit the risk of femoral nerve palsy. With traction off and the hip at 90 degrees of external rotation, the hip was hyperextended and adducted while manually elevating the femur away from the acetabulum with the [place] hook to avoid hooking the greater trochanter on the pelvis. An asymmetric retractor was placed over the calcar and a broad double-pronged retractor was placed over the greater trochanter. The tag stitch capturing the lateral leaflet of the capsule was moved to the medial side, leaving the conjoined and piriformis tendons isolated in the face of the greater trochanter. The hip was externally rotated and elevated. A release of the conjoined tendon was necessary in order to obtain adequate exposure for broaching. The canal was opened with an opening broach and a rasp was used to remove cancellous bone. A rongeur was used to remove the residual lateral bone at the base of the greater trochanter to avoid placing the stem in varus. The femur was then broached to the appropriate sized stem yielding good rotational fit and fill of the canal as well as appropriate version of the stem trial. Neck and head trials were placed, all retractors were removed and the hip was returned to neutral abduction and extension. I then reduced the hip and manually trialed it before changing surgical gloves. Initial trialing was performed with a size 5 broach, a high offset neck and a +0 head. I initially manually externally rotated the hip and found that I could not dislocate it. I then locked the hip in 45 degrees of external rotation and dropped it to the floor with traction off which demonstrated no instability. An OrthoGrid overlay image was obtained by matching the abduction angle of the nonoperative hip to the operative hip and overlaying the offset and leg length of the operative side relative to the nonoperative side while matching pelvic morphology. This overlay image demonstrated appropriate leg lengths but decreased offset. AP and lateral hip fluoroscopic images were obtained to evaluate the broach size which demonstrated good canal fill. The hip was dislocated and I returned to the broaching position. Based on my evaluation during initial trialing I planned to sink the broach slightly and upsize the head in order to increase offset. I used a smaller sized broach as a rasp to remove lateral bone and then sank the size 5 broach approximately 2 mm down the canal and calcar planed at that position. The broach had good rotational stability at that position. The definitive stem was placed and the trunnion was cleaned and dried. I placed a ceramic head onto the trunnion and impacted it into place on the [place] taper.?? All retractors were removed and the hip was reduced. A dilute mixture of betadine and peroxide was used to bathe the soft tissues during final fluoroscopic assessment. Appropriate component positioning was confirmed on an OrthoGrid overlay image comparing the nonoperative side to the operative side. Appropriate stem fill was evaluated on AP and lateral hip radiographs. No previously unrecognized fractures were identified on these radiographs. There was no hip instability with maximum (90?) external rotation as well as a 45 degree drop test. The hip was copiously irrigated with pulse lavage. The capsule was closed with absorbable interrupted suture. The TFL fascia was closed with barbed suture while carefully protecting the lateral femoral cutaneous nerve from entrapment. A mixture of Ropivacaine, Epinephrine and Toradol was infiltrated throughout the soft tissues. The skin was closed with 2-0 and 3-0 sutures. Surgical glue was applied and a soft dressing was placed.??The sponge, instrument and needle counts were reported as being correct at the end of the case.??No obvious complications occurred. The patient was transferred from the [place] table back to a stretcher. The patient emerged from anesthesia without difficulty and was taken to the PACU in a stable condition.? Plan for aftercare: No hip precautions Weightbearing as tolerated Aspirin 81 twice per day for DVT prophylaxis Anticipate discharge home today Multimodal pain regimen with no IV opioids ordered Follow up at [facility] in 2 weeks Complications: none Post-operative Condition: stable Disposition: same day surgery
== END 2025-07-13 14:51 | disposition home or self-care (01) ==
PROVIDERS: PCP Registered Nurse Diabetes Educator; Referring Provider Orthopaedic Surgery Adult Reconstructive Orthopaedic Surgery; Visit Provider Orthopaedic Surgery Adult Reconstructive Orthopaedic Surgery
PROC: (CPT 27130; principal; 2025-07-13 09:30)
DX: M16.11 Unilateral primary osteoarthritis, right hip (principal); M25.751 Osteophyte, right hip; E11.9 Type 2 diabetes mellitus without complications; Z79.84 Long term (current) use of oral hypoglycemic drugs; I10 Essential (primary) hypertension; E78.5 Hyperlipidemia, unspecified
CPT/HCPCS: 27130; 0054T; 73502; 76000; 82962; C1776; J0330; J0689; J1100; J1171; J1885; J2405; J2704; J3010; J3490; J7120

== ENCOUNTER 2025-07-16 22:39 | Emergency (ER) | payer MEDICARE, OTHER, SELFPAY ==
--- NOTE | 2025-07-16 22:51 | DI.RAD.S_ITS ---
PROCEDURE: XR HIP W PEL IF DONE RT 2V INDICATIONS: possible right hip dislocation TECHNIQUE: 2 views of the hip were acquired. COMPARISON: [facility], CR, XR HIP W PEL RT 2V, 07/13/2025, 11:39. [facility], CR, XR HIP W PEL RT 2V, 07/13/2025, 10:29. FINDINGS AND IMPRESSION: Right hip arthroplasty with superior dislocation. No displaced fracture deformity. Scrotal surgical clips. Mild left hip arthrosis partially seen. Dictated by: Darien Michael M.D. on 07/16/2025 at 23:20 Approved by: Darien Michael M.D. on 07/16/2025 at 23:21
[2025-07-16 22:52] VITALS: BP 116/57; PULSE 73; RESP 16; TEMP 36.7; O2SAT 96; BMI 30.1
[2025-07-16 23:50] VITALS: BP 125/59; PULSE 74; RESP 22; O2SAT 91
[2025-07-16 23:55] VITALS: BP 120/58; PULSE 75; RESP 21; O2SAT 91
[2025-07-17] VITALS (37 sets, daily range): BP systolic 106–156; BP diastolic 54–67; PULSE 68–88; RESP 15–40; O2SAT 83–100
[2025-07-17] MEDS: KETAMINE 500 MG/5 ML INJ 75 MG IV (01:04)
[2025-07-17] MEDS: KETAMINE 500 MG/5 ML INJ 300 MG IV (01:04)
--- NOTE | 2025-07-17 01:09 | DI.RAD.S_ITS ---
PROCEDURE: XR PELVIS 1-2V INDICATIONS: POST REDUCTION TECHNIQUE: 1 view of the lower pelvis acquired. COMPARISON: [facility], CR, XR HIP W PEL RT 2V, 07/16/2025, 22:50. FINDINGS AND IMPRESSION: Relocation of the right hip arthroplasty, in expected radiographic position. Scrotal surgical clips. No suspicious soft tissue calcifications. Dictated by: Darien Michael M.D. on 07/17/2025 at 1:35 Approved by: Darien Michael M.D. on 07/17/2025 at 1:35
--- NOTE | 2025-07-17 01:12 | PM.CN.IH.1 ---
History of Present Illness Consult details Date Patient Seen: 07/17/25 Time Patient Seen: 01:12 Chief complaint: Right hip dislocation Reason for consult: Right hip dislocation Requesting provider: Jessica Emerson Narrative: Marcos is an 80-year-old male who had a right total hip arthroplasty performed [address] Medina. He fell and sustained an injury to the right hip on July 16. He presented to the emergency room where x-rays revealed a dislocation of his right total hip arthroplasty. Attempt at closed reduction was made by the emergency room but was unsuccessful. Ortho consult was requested for assistance. Meds Home Medications and Allergies Home Medications ?Medication ?Instructions ?Recorded ?Confirmed ?Type Multivitamin See Rx Instructions .Route .COMPLEX 03/19/18 07/08/25 History omeprazole 20 mg capsule,delayed 20 mg PO Q DAY PRN PRN GERD #90 12/27/21 07/08/25 Rx release caps cyanocobalamin (vitamin B-12) 2,000 mcg PO DAILY #90 tabs 01/01/23 07/08/25 Rx 2,000 mcg tablet verapamil 120 mg tablet,extended 360 mg (3 x 120 mg) PO DAILY #270 01/13/25 07/13/25 Rx release tabs chlorthalidone 25 mg tablet 25 mg PO DAILY #90 tabs 01/16/25 07/13/25 Rx losartan 100 mg tablet 100 mg PO QDAY #90 tabs 01/16/25 07/13/25 Rx metformin 500 mg tablet,extended 500 mg PO DAILY #90 tabs 01/16/25 07/13/25 Rx release 24 hr rosuvastatin 5 mg tablet 5 mg PO DAILY #90 tabs 01/16/25 07/08/25 Rx tamsulosin 0.4 mg capsule (Flomax) 0.8 mg (2 x 0.4 mg) PO DAILY #60 04/15/25 07/13/25 Rx caps meloxicam 15 mg tablet 15 mg PO DAILY PRN pain #30 tabs 06/26/25 07/08/25 Rx tramadol 50 mg tablet 50 mg PO Q6H PRN pain #20 tabs 06/26/25 07/08/25 Rx aspirin 325 mg tablet 325 mg PO DAILY PRN headache 07/08/25 07/13/25 History buspirone 5 mg tablet 5 mg PO QDAY 07/08/25 07/13/25 History sertraline 100 mg tablet 200 mg PO DAILY 07/08/25 07/13/25 History Allergies Allergy/AdvReac Type Severity Reaction Status Date / Time MELANIE Inhibitors Allergy Intermediate COUGH Verified 07/16/25 22:52 artichoke (ARTICHOKE) Allergy Unknown PATIENT Verified 07/16/25 22:52 CAN'T REMEMBER hydrochlorothiazide AdvReac Intermediate Leg cramps Verified 07/16/25 22:52 (HYDROCHLOROTHIAZIDE) escitalopram AdvReac Mild extreme Verified 07/16/25 22:52 fatigue Review of Systems Review of Systems ROS: Yes unobtainable due to mental status (Patient had been sedated) Exam Vital Signs (past 8 hours): - 07/16/25 22:52 Temperature 98.0 F Pulse Rate 73 Respiratory Rate 16 Blood Pressure 116/57 L Pulse Oximetry 96 Oxygen Delivery Method Room Air Oxygen Delivery Method Room Air Narrative Exam Narrative: Patient was sedated at the time of evaluation. Right lower extremity has dressing in the anterolateral aspect of the hip. The leg is shortened compared to the left side. Leg is internally rotated. Objective Imaging Right hip films: My impression: AP and lateral views of the right hip performed July 16, 2025 were personally assessed. There is presence of the total hip arthroplasty. The hip is dislocated anterior superiorly. There does not appear to be any acute fracture or other acute pathology. Components appear well positioned in the acetabulum and femur. FORMERLY [facility] Medical History Primary osteoarthritis of right hip Diabetic neuropathy associated with type 2 diabetes mellitus Microalbuminuria Macrocytic anemia Depression Dyslipidemia Diabetes mellitus type 2, uncomplicated Difficulty urinating Squamous cell carcinoma (05/2013) GERD (gastroesophageal reflux disease) Migraines Dermatitis Allergic rhinitis Hearing loss Hyperlipemia Hypertension Anxiety Surgical History (Updated 07/08/25 @ 13:08 by Melida Calles RN) History of carpal tunnel surgery of right wrist Hx of tonsillectomy Hx of surgical procedure (05/2013) Family History Father Hypertension Stroke Mother Diabetes mellitus Social History household members: none Tobacco & Substance Use Smoking Status: Never smoker Tobacco: How many years used: 5 second hand exposure: No alcohol intake: current substance use type: does not use Assessment & Plan Assessment & Plan narrative: Right hip total hip arthroplasty dislocation. Patient had already been consented for closed reduction. The emergency room staff provided sedation for the procedure. a bed sheet was tied around the pelvis to help secured in place. Through a combination of axial traction and some rotational movements, the hip was successfully reduced and confirmed with repeat x-rays. Recommend continued observation in the emergency room until he is completely recovered from his sedation. May be discharged home if he has appropriate support at home. Must use a walker at all times for support and fall prevention. Reinforce hip precautions with the patient and his family. Time-Based Coding :: [TOTAL MINUTES] spent with patient and on the chart (including review of chart, obtaining history, exam, reviewing outside data, placing orders, documenting exam and treatment plan, and counseling patient) on [DATE]. PROFEE Charge Codes Inpatient or Observation consultation: 66590
[2025-07-17] MEDS: ONDANSETRON 4 MG/2 ML INJ IV (01:15)
--- NOTE | 2025-07-17 03:02 | ED_ITS ---
HPI - Extremity Injury (Lower) General Chief Complaint: Extremity Injury, Lower Stated Complaint: Right hip dislocation Time Seen by Provider: 07/16/25 22:57 Source: patient and EMS Mode of arrival: EMS History of Present Illness HPI Narrative: Patient is a 80-year-old man who presents to the ED after a fall for right hip pain. Past medical history significant for total hip arthroplasty (Dr. Medina) on 07/13/2025. Past medical history significant for type 2 diabetes complicated by diabetic neuropathy, dyslipidemia, hyperlipidemia, hypertension. Patient states that he was trying to get up from his walker when he slipped and fell with resultant right hip pain. He denies any chest pain, dyspnea, diaphoresis. No lightheadedness, presyncope, or syncopal episodes. No fevers, chills, nausea, vomiting. Related Data Home Medications ?Medication ?Instructions ?Recorded ?Confirmed Multivitamin See Rx Instructions .Route . COMPLEX 03/19/18 07/08/25 aspirin 325 mg tablet 325 mg PO DAILY PRN headache 07/08/25 07/13/25 buspirone 5 mg tablet 5 mg PO QDAY 07/08/25 sertraline 100 mg tablet 200 mg PO DAILY 07/08/25 Previous Rx's ?Medication ?Instructions ?Recorded omeprazole 20 mg capsule,delayed 20 mg PO Q DAY PRN [place] N GERD #90 12/27/21 release caps cyanocobalamin (vitamin B-12) 2,000 mcg PO DAILY #90 t abs 01/01/23 2,000 mcg tablet verapamil 120 mg tablet,extended 360 mg (3 x 120 mg) P O DAILY #270 01/13/25 release tabs chlorthalidone 25 mg tablet 25 mg PO DAILY #90 tabs losartan 100 mg tablet 100 mg PO QDAY #90 tabs 12/22 02/13 metformin 500 mg tablet,extended 500 mg PO DAILY #90 t abs 01/16/25 release 24 hr rosuvastatin 5 mg tablet 5 mg PO DAILY #90 tabs 01/16 tamsulosin 0.4 mg capsule (Flomax) 0.8 mg (2 x 0.4 mg) PO DAILY #60 04/15/25 caps meloxicam 15 mg tablet 15 mg PO DAILY PRN pain #30 tabs 12/05/25 tramadol 50 mg tablet 50 mg PO Q6H PRN pain #20 ta bs 06/26/25 Allergies Allergy/AdvReac Type Severity Reaction Status Date / Time MELANIE Inhibitors Allergy Intermediate COUGH Verified 07/16/25 22:52 artichoke (ARTICHOKE) Allergy Unknown PATIENT Verified 07/16/25 22:52 CAN'T REMEMBER hydrochlorothiazide AdvReac Intermediate Leg cramps Verified 07/16/25 22:52 (HYDROCHLOROTHIAZIDE) escitalopram AdvReac Mild extreme Verified 07/16/25 22:52 fatigue Review of Systems Review of Systems Narrative: See HPI. Patient History Medical History (Updated 07/17/25 @ 01:51 by Jessica Emerson MD) Primary osteoarthritis of right hip Diabetic neuropathy associated with type 2 diabetes mellitus Microalbuminuria Macrocytic anemia Depression Dyslipidemia Diabetes mellitus type 2, uncomplicated Difficulty urinating Squamous cell carcinoma (05/2013) GERD (gastroesophageal reflux disease) Migraines Dermatitis Allergic rhinitis Hearing loss Hyperlipemia Hypertension Anxiety Surgical History (Updated 07/08/25 @ 13:08 by Melida Calles RN) History of carpal tunnel surgery of right wrist Hx of tonsillectomy Hx of surgical procedure (05/2013) Family History Father Hypertension Stroke Mother Diabetes mellitus Social History household members: none Smoking Status: Never smoker Tobacco: How many years used: 5 second hand exposure: No alcohol intake: current substance use type: does not use Smoking Status: Never smoker Exam Narrative Exam Narrative: Vitals: Afebrile, within normal range Gen: Well-developed, well-nourished, no acute distress Skin: Surgical dressing on right hip without any strike through. Surrounding skin without any edema, erythema. Card: Regular, no murmurs rubs or gallops Pulm: No increased work of breathing Abd: Obese, nondistended, nontender to palpation Ext: Right lower extremity internally rotated, shortened. 2+ DP and PT pulses bilaterally. Neuro: A&O times 4. Cranial nerves grossly intact. Psych: Appropriate. Initial Vital Signs Initial Vital Signs: Vital Signs Temperature 98.0 F 07/16/25 22:52 Pulse Rate 73 07/16/25 22:52 Respiratory Rate 16 07/16/25 22:52 Blood Pressure 116/57 L 07/16/25 22:52 Pulse Oximetry 96 07/16/25 22:52 Oxygen Delivery Method Room Air 07/16/25 22:52 Procedures Orthopedic Joint Reduction Joint #1: Time of procedure: 23:25 Time Out Performed: Yes Side: right Joint Reduction Location: hip Analgesia: procedural sedation Technique used: direct manipulation Post Reduction X-Ray Obtained: Yes Post Reduction X-Ray Results: not reduced Additional Comments: I was unable to reduce the right hip and called Dr. Birmingham, who presented was able to reduce the dislocation. Please see his dedicated procedure note. Course Orders Ordered: ED Orders 07/16/25 22:51 XR hip w pel RT 2V Stat 07/17/25 01:09 XR pelvis 1-2V Stat Discontinued Medications Ketamine HCl (Ketamine 500 Mg/5 Ml Inj) 300 mg IV NOW ONE Stop: 07/16/25 23:27 Last Admin: 07/17/25 01:04 Dose: 300 mg Documented By: CRISTIAN Ketamine HCl (Ketamine 500 Mg/5 Ml Inj) 75 mg IV NOW ONE Stop: 07/17/25 00:56 Last Admin: 07/17/25 01:04 Dose: 75 mg Documented By: CRISTIAN Non-Formulary Medication (Proprofol) 300 mg IV NOW ONE Stop: 07/16/25 23:32 Ondansetron HCl (Ondansetron 4 Mg/2 Ml Inj) 4 mg IV NOW ONE Stop: 07/17/25 01:13 Last Admin: 07/17/25 01:15 Dose: 4 mg Documented By: CRISTIAN Propofol (Propofol 200 Mg/20 Ml Vial) 300 mg IV NOW ONE Stop: 07/16/25 23:37 Last Admin: 07/17/25 01:04 Dose: 300 mg Documented By: CRISTIAN Propofol (Propofol 200 Mg/20 Ml Vial) 25 mg IV NOW ONE Stop: 07/17/25 00:56 Last Admin: 07/17/25 01:04 Dose: 25 mg Documented By: CRISTIAN Vital Signs Vital signs: Vital Signs - 8 hr 07/16/25 22:52 07/16/25 23:50 07/16/25 23:55 Temperature 98.0 F Pulse Rate 73 74 75 Respiratory Rate 16 22 21 Blood Pressure 116/57 L 125/59 L 120/58 L Pulse Oximetry 96 91 91 Oxygen Delivery Method Room Air Oxygen Flow Rate 07/17/25 00:00 07/17/25 00:05 07/17/25 00:10 Temperature Pulse Rate 75 76 74 Respiratory Rate 23 23 20 Blood Pressure 121/58 L 117/57 L 119/59 L Pulse Oximetry 92 91 91 Oxygen Delivery Method Oxygen Flow Rate 07/17/25 00:15 07/17/25 00:48 07/17/25 00:50 Temperature Pulse Rate 76 83 Respiratory Rate 26 H 22 Blood Pressure 119/56 L 137/64 Pulse Oximetry 91 99 Oxygen Delivery Method Oxygen Flow Rate 07/17/25 00:50 07/17/25 00:55 07/17/25 00:55 Temperature Pulse Rate 81 81 Respiratory Rate 15 22 Blood Pressure 129/55 L Pulse Oximetry 100 96 Oxygen Delivery Method Oxygen Flow Rate 07/17/25 01:00 07/17/25 01:05 07/17/25 01:05 Temperature Pulse Rate 77 78 Respiratory Rate 29 H 24 Blood Pressure 117/65 Pulse Oximetry 83 L 98 Oxygen Delivery Method Room Air Ambu Bag Oxygen Flow Rate 15 07/17/25 01:10 07/17/25 01:10 07/17/25 01:15 Temperature Pulse Rate 85 84 Respiratory Rate 17 26 H Blood Pressure 119/60 Pulse Oximetry 84 L 98 Oxygen Delivery Method Nasal Cannula Ambu Bag Oxygen Flow Rate 15 07/17/25 01:15 07/17/25 01:20 07/17/25 01:20 Temperature Pulse Rate 83 Respiratory Rate 22 Blood Pressure 120/59 L 119/57 L Pulse Oximetry 99 Oxygen Delivery Method Oxygen Flow Rate 07/17/25 01:25 07/17/25 01:25 07/17/25 01:30 Temperature Pulse Rate 81 80 Respiratory Rate 23 24 Blood Pressure 118/56 L Pulse Oximetry 94 94 Oxygen Delivery Method Oxygen Flow Rate 07/17/25 01:30 07/17/25 01:31 07/17/25 01:35 Temperature Pulse Rate 82 83 Respiratory Rate 18 21 Blood Pressure 118/56 L Pulse Oximetry 94 Oxygen Delivery Method Oxygen Flow Rate 07/17/25 01:35 07/17/25 01:40 07/17/25 01:40 Temperature Pulse Rate 80 Respiratory Rate 24 Blood Pressure 124/60 117/58 L Pulse Oximetry 94 Oxygen Delivery Method Oxygen Flow Rate 07/17/25 01:45 07/17/25 01:45 07/17/25 01:50 Temperature Pulse Rate 79 Respiratory Rate 22 Blood Pressure 119/56 L 123/60 Pulse Oximetry 94 Oxygen Delivery Method Nasal Cannula Oxygen Flow Rate 3 07/17/25 01:50 07/17/25 01:55 07/17/25 01:55 Temperature Pulse Rate 80 79 Respiratory Rate 20 23 Blood Pressure 106/55 L Pulse Oximetry 94 95 Oxygen Delivery Method Room Air Oxygen Flow Rate 07/17/25 02:00 07/17/25 02:00 07/17/25 02:05 Temperature Pulse Rate 78 77 Respiratory Rate 20 15 Blood Pressure 128/57 L Pulse Oximetry 95 93 Oxygen Delivery Method Room Air Oxygen Flow Rate 07/17/25 02:05 07/17/25 02:10 07/17/25 02:10 Temperature Pulse Rate 77 Respiratory Rate 16 Blood Pressure 127/61 129/61 Pulse Oximetry 94 Oxygen Delivery Method Room Air Oxygen Flow Rate 07/17/25 02:15 07/17/25 02:15 07/17/25 02:20 Temperature Pulse Rate 79 Respiratory Rate 18 Blood Pressure 130/60 131/54 L Pulse Oximetry 93 Oxygen Delivery Method Oxygen Flow Rate 07/17/25 02:20 07/17/25 02:26 07/17/25 02:26 Temperature Pulse Rate 79 78 Respiratory Rate 16 15 Blood Pressure 135/61 Pulse Oximetry 93 91 Oxygen Delivery Method Room Air Oxygen Flow Rate 07/17/25 02:30 07/17/25 02:30 07/17/25 02:35 Temperature Pulse Rate 79 Respiratory Rate 20 Blood Pressure 135/61 134/63 Pulse Oximetry 93 Oxygen Delivery Method Oxygen Flow Rate 07/17/25 02:35 07/17/25 02:40 07/17/25 02:40 Temperature Pulse Rate 80 83 Respiratory Rate 15 20 Blood Pressure 137/60 Pulse Oximetry 93 94 Oxygen Delivery Method Oxygen Flow Rate 07/17/25 02:45 07/17/25 02:45 07/17/25 02:50 Temperature Pulse Rate 88 Respiratory Rate 23 Blood Pressure 137/64 123/60 Pulse Oximetry 92 Oxygen Delivery Method Oxygen Flow Rate 07/17/25 02:50 Temperature Pulse Rate 83 Respiratory Rate 17 Blood Pressure Pulse Oximetry 94 Oxygen Delivery Method Oxygen Flow Rate MDM - Extremity Injury (Lower) Imaging Data Extremity x-ray #1: Radiologist's Impression: PROCEDURE: XR HIP W PEL IF DONE RT 2V INDICATIONS: possible right hip dislocation TECHNIQUE: 2 views of the hip were acquired. COMPARISON: [facility], CR, XR HIP W PEL RT 2V, 07/13/2025, 11:39. [facility], CR, XR HIP W PEL RT 2V, 07/13/2025, 10:29. FINDINGS AND IMPRESSION: Right hip arthroplasty with superior dislocation. No displaced fracture deformity. Scrotal surgical clips. Mild left hip arthrosis partially seen. Extremity x-ray #2: Radiologist's Impression: PROCEDURE: XR PELVIS 1-2V INDICATIONS: POST REDUCTION TECHNIQUE: 1 view of the lower pelvis acquired. COMPARISON: [facility], CR, XR HIP W PEL RT 2V, 07/16/2025, 22:50. FINDINGS AND IMPRESSION: Relocation of the right hip arthroplasty, in expected radiographic position. Scrotal surgical clips. No suspicious soft tissue calcifications. MDM Narrative Medical decision making narrative: Patient is a 80-year-old man postop day 3 status post total hip arthroplasty presents with right hip pain. Differential diagnosis: Femoral head fracture, femoral neck fracture, hip dislocation, pelvic fracture, bursitis, other. Labs: Not indicated. Imaging: X-ray revealing superiorly dislocated right hip. EKG: Not indicated. Consults: Orthopedics ED Course: Patient arrived in the ED hemodynamically stable. Physical exam significant for internally rotated and shortened right lower extremity. Attempted closed reduction of the right hip under moderate sedation without any success therefore Dr. Birmingham was consulted and was able to successfully reduce the extremity. Postreduction films confirmed that hip joint was in anatomical position. Patient was evaluated approximately an hour after the procedure and was sensory nearly intact. Discharge Plan Departure Patient Disposition: Home Clinical Impression: Dislocation, hip closed Instructions: DI for Hip Dislocation -- Adult, DI for Moderate Sedation Activity Restrictions/Additional Instructions: You were seen in the emergency department for a fall and was found to have a hip dislocation. In the ED: -- You underwent procedural sedation for closed reduction of your hip. Please read the discharge instructions for post procedural sedation. Plan: -- Always walk with your walker -- Do not cross your legs -- Follow up your orthopedic surgeon as previously scheduled Prescriptions: No Action Multivitamin See Rx Instructions .ROUTE .COMPLEX Patient Comments: 1 tablet, PO, QDAY Rx Instructions: 1 tablet, PO, QDAY omeprazole 20 mg capsule,delayed release(DR/EC) 20 mg PO Q DAY PRN PRN (Reason: GERD) Qty: 90 1RF cyanocobalamin (vitamin B-12) 2,000 mcg tablet 2,000 mcg PO DAILY Qty: 90 1RF verapamil 120 mg tablet extended release 360 mg PO DAILY Qty: 270 3RF chlorthalidone 25 mg tablet 25 mg PO DAILY Qty: 90 3RF losartan 100 mg tablet 100 mg PO QDAY Qty: 90 3RF metformin 500 mg tablet extended release 24 hr 500 mg PO DAILY Qty: 90 3RF rosuvastatin 5 mg tablet 5 mg PO DAILY Qty: 90 3RF tamsulosin [Flomax] 0.4 mg capsule 0.8 mg PO DAILY Qty: 60 3RF buspirone 5 mg tablet 5 mg PO QDAY Patient Comments: Pt states taking 5mg daily sertraline 100 mg tablet 200 mg PO DAILY aspirin 325 mg tablet 325 mg PO DAILY PRN (Reason: headache) meloxicam 15 mg tablet 15 mg PO DAILY PRN (Reason: pain) Qty: 30 1RF tramadol 50 mg tablet 50 mg PO Q6H PRN (Reason: pain) Qty: 20 0RF Referrals: Joni Wright ARNP [Primary Care Provider, Medical] Stand Alone Forms: Patient Portal/API
== END 2025-07-17 04:18 | disposition home or self-care (01) ==
PROVIDERS: Emergency Provider Student in an Organized Health Care Education/Training Program; PCP Registered Nurse Diabetes Educator
DX: S73.004A Unspecified dislocation of right hip, initial encounter (principal); E11.40 Type 2 diabetes mellitus with diabetic neuropathy, unspecified; I10 Essential (primary) hypertension; W01.0XXA Fall on same level from slipping, tripping and stumbling without subsequent striking against object, initial encounter
CPT/HCPCS: 25605; 27232; 27265; 72170; 73502; 96374; 96375; 99285; J2405; J2704